=== PATIENT | male | born 1980 | race Hispanic/Latino ===

== ENCOUNTER 2024-05-17 00:24 | Inpatient (IN) | payer OTHER ==
[2024-05-17] VITALS (37 sets, daily range): BP systolic 111–169; BP diastolic 60–94; PULSE 56–82; RESP 11–63; O2SAT 94–99
[2024-05-17] MEDS ORDERED: IOHEXOL 350 MG/ML 100ML INFUS..BTL IV ONE ×2 (00:41→01:04)
[2024-05-17] MEDS ORDERED: LIDOCAINE HCL 400MG/20ML VIAL ONE (00:41)
[2024-05-17] MEDS ORDERED: HEPARIN 10,000 UNIT/10ML (1,000 UNIT/ML) VIAL ONE (00:41)
[2024-05-17] MEDS ORDERED: ATROPINE 1MG SYG IVP ONE (00:52)
[2024-05-17] MEDS ORDERED: DOPAMINE HCL 400 MG/D5%-WATER 0 ML IV ONE (00:52)
[2024-05-17] MEDS ORDERED: NITROGLYCERIN 50MG/D5W 250ML 1 BOT IV PRN (01:30)
[2024-05-17] MEDS ORDERED: ONDANSETRON 4MG INJ IVP PRN (01:30)
[2024-05-17] MEDS ORDERED: TEMAZEPAM 30 MG CAP PO PRN (01:30)
[2024-05-17] MEDS ORDERED: ACETAMINOPHEN WITH CODEINE 1 TAB TAB PO PRN ×2 (01:30)
[2024-05-17] MEDS ORDERED: HEPARIN 25,000 UNITS/250ML D5W 250 ML IV SCH (02:30)
[2024-05-17] MEDS ORDERED: POTASSIUM CHLORIDE 10% ELIXIR 20 MEQ/15 ML UDCUP PO PRN (04:00)
[2024-05-17] MEDS: POTASSIUM CHLORIDE 10MEQ/100ML 100 ML IV ONE ×4 (04:10→04:45)
[2024-05-17 04:18] LABS: MEAN CORPUSCULAR HEMOGLOBIN 29.1 pg (27.0-33.0); MEAN CORPUSCULAR HGB CONC 32.6 g/dL (32.0-36.0); MEAN CORPUSCULAR VOLUME 89.4 fL (79-99); RED BLOOD CELL COUNT(AUTO) 4.7 MIL/uL (4.50-6.20); RED CELL DISTRIBUTION WIDTH 12.8 % (11.0-15.5); WHITE BLOOD COUNT (AUTO) 11.8 K/uL (4.8-10.8)
[2024-05-17] MEDS: MAGNESIUM 2GM PREMIX 50ML 50 ML IV ONE (04:26)
[2024-05-17 04:34] LABS: CREATININE 1.1 mg/dL (0.5-1.3); MAGNESIUM 2.4 mg/dL (1.80-2.40); PHOSPHORUS 4.1 mg/dL (2.5-4.9)
[2024-05-17] MEDS ORDERED: ASPI-1443 PO (06:21)
[2024-05-17 07:46] LABS: HEMOGLOBIN A1C 5.7 % (4.0-6.0)
[2024-05-17] MEDS: AMIODARONE 900MG VIAL 150 MG in DEXTROSE 5%-WATER 100 ML IV SCH (07:57)
[2024-05-17] MEDS: AMIODARONE 360 MG in DEXTROSE 5%-WATER 200 ML IV SCH (08:09)
[2024-05-17] MEDS: METOPROLOL TARTRATE 25 MG TAB PO SCH (08:15)
[2024-05-17] MEDS: PANTOPRAZOLE 40 MG TAB DR PO SCH (08:15)
[2024-05-17] MEDS: CLOPIDOGREL 75MG TAB PO SCH (08:15)
[2024-05-17] MEDS: ASPIRIN 81MG CHEW TAB PO SCH (08:22)
[2024-05-17 10:20] LABS: MAGNESIUM 2.3 mg/dL (1.80-2.40); POTASSIUM 3.7 mmol/L (3.5-5.1)
[2024-05-17] MEDS: ONDANSETRON 4MG INJ IVP SCH (10:49)
[2024-05-17] MEDS: MORPHINE 5 MG/ML VIAL (5MG OR GREATER DOSE) IVP SCH (11:00)
[2024-05-17] MEDS: AMIODARONE 540 MG in DEXTROSE 5%-WATER 300 ML IV SCH (14:44)
[2024-05-17] MEDS: KCL 20 MEQ ERTAB PO PRN (15:06)
[2024-05-17] MEDS ORDERED: METO-391 PO (15:13)
[2024-05-17] MEDS ORDERED: ATOR40TA71 PO (16:03)
[2024-05-17] MEDS: NICOTINE 21 MG/ 24 HR PATCH TD SCH (17:04)
[2024-05-17] MEDS: ATORVASTATIN 40 MG TABLET PO SCH (20:23)
[2024-05-18] VITALS (59 sets, daily range): BP systolic 115–167; BP diastolic 58–92; PULSE 59–87; RESP 8–53; O2SAT 97–99
[2024-05-18 04:46] LABS: BASOPHILS # (AUTO) 0.02 K/uL (0.00-0.20); BASOPHILS % (AUTO) 0.2 % (0.0-5.0); EOSINOPHILS # (AUTO) 0.07 K/uL (0.00-0.70); EOSINOPHILS % (AUTO) 0.6 % (0.0-8.0); HEMATOCRIT 43.9 % (42-54); IMMATURE GRANULOCYTE ABSOLUTE 0.03 K/uL (0-1); LYMPHOCYTES # (AUTO) 2.6 K/uL (1.0-4.8); LYMPHOCYTES % (AUTO) 21.9 % (21.0-51.0); MEAN CORPUSCULAR HEMOGLOBIN 29.7 pg (27.0-33.0); MEAN CORPUSCULAR HGB CONC 32.8 g/dL (32.0-36.0); MEAN CORPUSCULAR VOLUME 90.5 fL (79-99); MONOCYTES % (AUTO) 8.6 % (3.0-13.0); NEUTROPHILS % (AUTO) 68.4 % (40.0-77.0); PLATELET COUNT (AUTO) 250 K/uL (130-400); RED BLOOD CELL COUNT(AUTO) 4.85 MIL/uL (4.50-6.20); RED CELL DISTRIBUTION WIDTH 12.9 % (11.0-15.5); WHITE BLOOD COUNT (AUTO) 11.7 K/uL (4.8-10.8)
[2024-05-18 05:07] LABS: MAGNESIUM 1.9 mg/dL (1.80-2.40); POTASSIUM 4.2 mmol/L (3.5-5.1)
[2024-05-18] MEDS: AMIODARONE 200 MG TABLET PO SCH (08:16)
[2024-05-18] MEDS: MAGNESIUM 2GM PREMIX 50ML 50 ML IV SCH (08:17)
[2024-05-18 13:59] LABS: AMPHET/METH SCREEN,URINE NEGATIVE (NEGATIVE); BARBITURATE SCREEN, URINE NEGATIVE (NEGATIVE); BENZODIAZEPINES SCREEN,URINE NEGATIVE (NEGATIVE); CANNABINOID SCREEN,URINE NEGATIVE (NEGATIVE); COCAINE SCREEN,URINE NEGATIVE (NEGATIVE); OPIATE SCREEN,URINE NEGATIVE (NEGATIVE); PHENCYCLIDINE SCREEN,URINE NEGATIVE (NEGATIVE)
[2024-05-19] VITALS: BP 146/71; PULSE 64; RESP 17
[2024-05-19 02:08] VITALS: O2SAT 96
[2024-05-19 04:03] LABS: HEMATOCRIT 43.5 % (42-54); MEAN CORPUSCULAR HEMOGLOBIN 29.2 pg (27.0-33.0); MEAN CORPUSCULAR HGB CONC 33.6 g/dL (32.0-36.0); RED CELL DISTRIBUTION WIDTH 12.6 % (11.0-15.5); WHITE BLOOD COUNT (AUTO) 11.1 K/uL (4.8-10.8)
[2024-05-19 04:28] LABS: ALBUMIN 3.1 g/dL (3.5-5.0); BILIRUBIN,TOTAL 0.3 mg/dL (0.2-1.0); MAGNESIUM 1.9 mg/dL (1.80-2.40); POTASSIUM 4.1 mmol/L (3.5-5.1); TOTAL PROTEIN, SERUM 6.5 g/dL (6.0-8.3)
[2024-05-19 05:00] VITALS: BP 112/77; PULSE 59; RESP 18
[2024-05-19 07:00] VITALS: BP 115/80; PULSE 73; RESP 18
[2024-05-19 09:37] VITALS: O2SAT 99
[2024-05-19] MEDS ORDERED: CLOP-31 PO (10:47)
[2024-05-19] MEDS ORDERED: ASPI-1005 PO (10:47)
[2024-05-19] MEDS ORDERED: ATOR40TA69 PO (10:47)
[2024-05-19] MEDS ORDERED: METO25 PO (10:47)
[2024-05-19] MEDS ORDERED: NICO-777 TD (10:47)
[2024-05-19] MEDS ORDERED: NITR0.4T50 SL (10:47)
[2024-05-19] MEDS ORDERED: AMIO200T44 PO (10:47)
== END 2024-05-19 12:03 | disposition home or self-care (01) | DRG 322 ==
LOC: 2BH 00:34 → 2AH 05-19 01:53
PROVIDERS: ADMIT Internal Medicine; ATTEND Internal Medicine Cardiovascular Disease
PROC: 027035Z Dilation of Coronary Artery, One Artery with Two Drug-eluting Intraluminal Devices, Percutaneous Approach (ICD-10-PCS; principal; 2024-05-17)
PROC: 4A023N7 Measurement of Cardiac Sampling and Pressure, Left Heart, Percutaneous Approach (ICD-10-PCS; 2024-05-17)
PROC: B2111ZZ Fluoroscopy of Multiple Coronary Arteries using Low Osmolar Contrast (ICD-10-PCS; 2024-05-17)
DX: I21.19 ST elevation (STEMI) myocardial infarction involving other coronary artery of inferior wall (principal); I47.20 Ventricular tachycardia, unspecified; I25.10 Atherosclerotic heart disease of native coronary artery without angina pectoris; E78.5 Hyperlipidemia, unspecified; F17.200 Nicotine dependence, unspecified, uncomplicated; I49.3 Ventricular premature depolarization; Z79.02 Long term (current) use of antithrombotics/antiplatelets; Z79.82 Long term (current) use of aspirin; Z82.49 Family history of ischemic heart disease and other diseases of the circulatory system; Z91.199 Patient's noncompliance with other medical treatment and regimen due to unspecified reason; Z91.148 Patient's other noncompliance with medication regimen for other reason; Z95.5 Presence of coronary angioplasty implant and graft
CPT/HCPCS: 36415; 80048; 80053; 80061; 80305; 83036; 83735; 84100; 84132; 84484; 85025; 85027; 85730; 93005; 93306; 93356; 93454; C1769; C1887; C1894; C9606; G0378; J0282; J0461; J1265; J1644; J2405; J3475; J3480; J3490; J7060; Q9967; C1725; C1874; Q9965